=== PATIENT | female | born 1955 | race Caucasian/White ===

== ENCOUNTER 2019-12-10 20:33 | Emergency (ER) | payer BC ==
[~2019-12-10] VITALS: Ht 172.7 cm; Wt 86.2 kg
[2019-12-10 20:48] VITALS: Ht 172.7 cm; Wt 86.2 kg
[2019-12-11 00:12] VITALS: BP 115/69
== END 2019-12-11 00:48 | disposition home or self-care (01) ==
LOC: ED 20:33
DX: M25.521 Pain in right elbow (principal); M25.511 Pain in right shoulder; M25.531 Pain in right wrist; J45.909 Unspecified asthma, uncomplicated; Z91.010 Allergy to peanuts
CPT/HCPCS: J1885; Q0092